=== PATIENT | male | born 1980 | race Caucasian/White ===

== ENCOUNTER 2018-05-12 05:00 | Emergency (ER) | payer OTHER, SELFPAY ==
[2018-05-12 05:06] VITALS: BP 123/81; PULSE 68; RESP 18; TEMP 37; O2SAT 100
[2018-05-12] MEDS: Tetracaine 0.5% 4 ML BTL (05:13)
--- NOTE | 2018-05-12 05:28 | W.ED.GENAD ---
Discharge Plan Disposition Patient Disposition: HOME Condition: Improving Discharge Details Chief Complaint: EyeProblem Clinical Impression: Abrasion of cornea, right Primary Care Provider: NONE,NONE ED Provider: Kuldeep Palacios Home Meds and New Rx's Prescriptions: No Action No Known Home Meds RF: 0 Discharge Instructions Instructions: Corneal Abrasion (ED) Additional Instructions: Please follow-up with [facility] for recheck of your right corneal abrasion. Call [phone] for an appointment Erythromycin ointment to right eye 4 times daily for 5 days. Return to the emergency department for any acute concerns Medical Decision Making 37-year-old male presents with right eye pain. He has right corneal abrasion. Topical anesthetic placed, the eye was irrigated liberally, reexamined and no foreign body was identified. Patient did state he felt improvement. A placed on erythromycin ointment. We will ask that he follow-up with [facility] for recheck of corneal abrasion. Stable for outpatient management at this time HPI General Mode of arrival: ambulatory. Date/Time Provider Initiated Documentation: 05/12/18 05:01. Limitations to Documentation: no limitations. Information obtained by: patient. History of Present Illness 37 year old M presents to the emergency department with the chief complaint of Right eye, described as severe, Quality is described as aching, and is localized to the eyes and right. Patient reports no radiation. Patient started experiencing this hour(s) and it has been constant. No relieving factors improve symptom(s), No exacerbating factors reported . HPI Narrative: 37-year-old male water states he went to bed feeling normal and after waking at 2 AM questions whether he rubs something into his eye and has now developed this moderate to severe, constant right eye pain is worse with opening and improved with closing of the eye. He has had associated watery tears. Denies any other recent illness. Related Data Home Medications Medication Instructions Recorded Confirmed Unknown [No Known Home Meds] 05/12/18 05/12/18 Allergies Allergy/AdvReac Type Severity Reaction Status Date / Time No Known Allergies Allergy Unverified 05/12/18 05:10 General Stated Complaint: EyeProblem VINOD: 4 Review of Systems Review of Systems 6 systems reviewed and is negative [facility] Social History Smoking/Tobacco Use Status: Former Tobacco Use Exam Narrative Exam Narrative: GEN: awake, alert, oriented 3. Pleasant, well groomed, interactive. HEAD: Normocephalic, atraumatic ENT: Mucous membranes moist, oropharynx unremarkable, External ear exam unremarkable EYES: PERRL, EOMI. conjunctival injection. On slit-lamp examination fluorescein stain reveals anterior corneal abrasion right that is inferior to the axis of vision. No foreign object is seen. Negative Mata sign NECK: Full ROM, no NICA, no menigismus Neuro: Grossly normal neurologic exam, conversant, interactive. Psych: Speech fluent, thoughts congruent, affect normal Course Vital Signs Temperature 37 C 05/12/18 05:06 Pulse 68 05/12/18 05:06 Respiratory Rate 18 05/12/18 05:06 Blood Pressure 123/81 05/12/18 05:06 Pulse Oximetry 100 05/12/18 05:06 Temperature 37 C 05/12/18 05:06 Temperature Source Skin 05/12/18 05:06 Pulse 68 05/12/18 05:06 Respiratory Rate 18 05/12/18 05:06 Respiratory Effort Non-Labored 05/12/18 05:09 Blood Pressure 123/81 05/12/18 05:06 Blood Pressure Position Sitting 05/12/18 05:06 Pulse Oximetry 100 05/12/18 05:06 Oxygen Delivery Method Room Air 05/12/18 05:06 Oxygen Flow Rate 0 05/12/18 05:06 Pain Level 10 05/12/18 05:06
--- NOTE | 2018-05-12 05:31 | ED.GENADUL_ITS ---
Discharge Plan Disposition Patient Disposition: HOME Condition: Improving Discharge Details Chief Complaint: EyeProblem Clinical Impression: Abrasion of cornea, right Primary Care Provider: NONE,NONE ED Provider: Kuldeep Palacios Home Meds and New Rx's Prescriptions: No Action No Known Home Meds RF: 0 Discharge Instructions Instructions: Corneal Abrasion (ED) Additional Instructions: Please follow-up with [facility] for recheck of your right corneal abrasion. Call [phone] for an appointment Erythromycin ointment to right eye 4 times daily for 5 days. Return to the emergency department for any acute concerns Medical Decision Making 37-year-old male presents with right eye pain. He has right corneal abrasion. Topical anesthetic placed, the eye was irrigated liberally, reexamined and no foreign body was identified. Patient did state he felt improvement. A placed on erythromycin ointment. We will ask that he follow-up with [facility] for recheck of corneal abrasion. Stable for outpatient management at this time HPI General Mode of arrival: ambulatory . Date/Time Provider Initiated Documentation: 05/12/18 05:01 . Limitations to Documentation: no limitations . Information obtained by: patient . History of Present Illness 37 year old M presents to the emergency department with the chief complaint of Right eye, described as severe, Quality is described as aching, and is localized to the eyes and right. Patient reports no radiation. Patient started experiencing this hour(s) and it has been constant. No relieving factors improve symptom(s), No exacerbating factors reported . HPI Narrative: 37-year-old male water states he went to bed feeling normal and after waking at 2 AM questions whether he rubs something into his eye and has now developed this moderate to severe, constant right eye pain is worse with opening and improved with closing of the eye. He has had associated watery tears. Denies any other recent illness. Related Data Home Medications Medication Instructions Recorded Confirmed Unknown [No Known Home Meds] 05/12/18 05/12/18 Allergies Allergy/AdvReac Type Severity Reaction Status Date / Time No Known Allergies Allergy Unverified 05/12/18 05:10 General Stated Complaint: EyeProblem VINOD: 4 Review of Systems Review of Systems 6 systems reviewed and is negative [facility] Social History Smoking/Tobacco Use Status: Former Tobacco Use Exam Narrative Exam Narrative: GEN: awake, alert, oriented 3. Pleasant, well groomed, interactive. HEAD: Normocephalic, atraumatic ENT: Mucous membranes moist, oropharynx unremarkable, External ear exam unremarkable EYES: PERRL, EOMI. conjunctival injection. On slit-lamp examination fluorescein stain reveals anterior corneal abrasion right that is inferior to the axis of vision. No foreign object is seen. Negative Mata sign NECK: Full ROM, no NICA, no menigismus Neuro: Grossly normal neurologic exam, conversant, interactive. Psych: Speech fluent, thoughts congruent, affect normal Course Vital Signs Temperature 37 C 05/12/18 05:06 Pulse 68 05/12/18 05:06 Respiratory Rate 18 05/12/18 05:06 Blood Pressure 123/81 05/12/18 05:06 Pulse Oximetry 100 05/12/18 05:06 Temperature 37 C 05/12/18 05:06 Temperature Source Skin 05/12/18 05:06 Pulse 68 05/12/18 05:06 Respiratory Rate 18 05/12/18 05:06 Respiratory Effort Non-Labored 05/12/18 05:09 Blood Pressure 123/81 05/12/18 05:06 Blood Pressure Position Sitting 05/12/18 05:06 Pulse Oximetry 100 05/12/18 05:06 Oxygen Delivery Method Room Air 05/12/18 05:06 Oxygen Flow Rate 0 05/12/18 05:06 Pain Level 10 05/12/18 05:06
[2018-05-12] MEDS: Erythromycin Ophth Oint 3.5 GM TUBE OD (05:49)
== END 2018-05-12 05:55 | disposition home or self-care (01) ==
LOC: ER 06:03
PROVIDERS: Emergency Provider Emergency Medicine
DX: S05.01XA Injury of conjunctiva and corneal abrasion without foreign body, right eye, initial encounter (principal); X58.XXXA Exposure to other specified factors, initial encounter
CPT/HCPCS: 99284